=== PATIENT | male | born 1955 | race Caucasian/White ===

== ENCOUNTER → 2019-05-15 | Outpatient (CLI) | payer OTHER ==
--- NOTE | 2019-05-15 14:50 | RAD ---
EXAM: Bilateral knees, 3 views. HISTORY: Pain. COMPARISON: 02/23/2013 FINDINGS: 3 views of both knees are obtained. There is bilateral medial compartment joint space narrowing with subchondral sclerosis, subchondral cyst formation and marginal spurring. There is suspected mild bilateral genu varus. There is a small right pleural effusion and trace left knee joint fluid. There suspected bilateral joint loose bodies. IMPRESSION: 1. Moderate medial and mild patellofemoral and lateral compartment osteoarthritis of both knees. 2. Suspected joint effusion and small bilateral knee joint loose bodies. Electronically signed by: Beba Hardin MD (05/15/2019 2:47 PM) [place] [id number]
== END | disposition home or self-care (01) ==
LOC: PMG 14:23
PROVIDERS: ATTEND Family Medicine
DX: M17.0 Bilateral primary osteoarthritis of knee (principal)
CPT/HCPCS: 73562

== ENCOUNTER → 2020-03-16 | Outpatient (CLI) | payer OTHER ==
--- NOTE | 2020-03-16 10:58 | RAD ---
3 views the bilateral shoulders without comparison for bilateral shoulder pain. FINDINGS: There is no fracture, dislocation, or acute osseous abnormality of either shoulder. Mild glenohumeral and acromioclavicular joint arthritis is present bilaterally. No dystrophic calcifications are seen. IMPRESSION: 1. No acute osseous abnormality of either shoulder. Electronically signed by: Kalen Deleon MD (03/16/2020 10:55 AM) [id number]
== END | disposition home or self-care (01) ==
LOC: RAD 10:20
PROVIDERS: ATTEND Physician Assistant
DX: M19.012 Primary osteoarthritis, left shoulder (principal); M19.011 Primary osteoarthritis, right shoulder
CPT/HCPCS: 73030

== ENCOUNTER → 2020-04-04 | Outpatient (CLI) | payer OTHER ==
--- NOTE | 2020-04-04 16:35 | RAD ---
EXAM: Bilateral knees, 2 views. HISTORY: Pain. COMPARISON: 05/15/2019. FINDINGS: 3 views of both knees are obtained. There is severe bilateral medial compartment joint space narrowing with subchondral sclerosis and spurring. There is bilateral genu varus. There is mild bilateral patellar spurring and enthesopathy along the superior patellae. There are small bilateral knee effusions. There are small joint loose bodies. IMPRESSION: 1. Severe bilateral medial compartment predominant osteoarthritis of both knees with genu varus. 2. Small joint effusions and small joint loose bodies. Electronically signed by: Beba Hardin MD (04/04/2020 4:32 PM) [facility]
== END ==
LOC: RAD 14:14
PROVIDERS: ATTEND Physician Assistant
DX: M17.0 Bilateral primary osteoarthritis of knee (principal); M25.462 Effusion, left knee; M25.461 Effusion, right knee; M23.42 Loose body in knee, left knee; M23.41 Loose body in knee, right knee
CPT/HCPCS: 73560; 73565